=== PATIENT | male | born 1960 | race Two or more races ===

== ENCOUNTER 2023-12-16 11:39 | Emergency (ER) | payer OTHER ==
[~2023-12-16] VITALS: Ht 157.5 cm; Wt 86.2 kg
[2023-12-16] MEDS ORDERED: DEPAKOTE ER500 MG PO (12:16)
[2023-12-16] MEDS ORDERED: QUETIAPINE FUM400 MG PO (12:16)
[2023-12-16] MEDS ORDERED: QUETIAPINE (12:16)
[2023-12-16] MEDS ORDERED: BENZTROPINE MESY1 MG PO (12:17)
[2023-12-16] MEDS ORDERED: ATORVASTATIN CA20 MG PO (12:17)
[2023-12-16] MEDS ORDERED: COZAAR100 MG PO (12:17)
[2023-12-16] MEDS ORDERED: ATIVAN1 M1 PO (12:17)
[2023-12-16] MEDS ORDERED: GLIMEPIRIDE1 M1 PO (12:18)
[2023-12-16] MEDS ORDERED: METFORMIN HCL500 MG (12:18)
[2023-12-16] MEDS ORDERED: LEVOTHYROXINE25 MC1 PO (12:18)
[2023-12-16 13:14] LABS: HEMATOCRIT 42.2 % (39.0-48.0); HEMOGLOBIN 14.6 g/dL (13-16.00); MEAN CELL VOLUME 97.5 fL (80.0-100.00); MEAN CORPUSCULAR HEMOGLOBIN 33.8 pg (27.00-32.0); MEAN CORPUSCULAR HGB CONC 34.7 g/dl (32.0-36.0); PLATELET COUNT 337 K/uL (150-450); RED BLOOD COUNT 4.33 M/uL (4.00-6.00); RED CELL DISTRIBUTION WIDTH 14.5 % (11.5-14.5)
[2023-12-16 13:35] LABS: ALBUMIN 3.8 gm/dL (3.4-5.0); BILIRUBIN TOTAL 0.37 mg/dL (0.3-1.2); CALCIUM 8.9 mg/dL (8.5-10.1); CREATININE SERUM 1.21 mg/dL (0.70-1.30); GFR 60.37; GLOBULINA 3.7 G/DL (2.4-3.5); POTASSIUM 4.28 mEq/L (3.5-5.1); TOTAL PROTEIN 7.5 gm/dL (6.4-8.2)
[2023-12-16 13:55] LABS: URINE APPEARANCE Clear; URINE BILIRRUBIN Negative (NEGATIVE); URINE BLOOD Negative; URINE COLOR Yellow; URINE LEUKOCYTE Negative; URINE NITRATE Negative; URINE PROTEIN Negative (NEGATIVE); URINE UROBILINOGEN 0.2 E.U./dl
[2023-12-16 14:01] LABS: URINE BACTERIA 21.3 uL (0.0-1933)
[2023-12-16 14:07] LABS: URINE EPITHELIAL CELLS 0.7 uL (0.0-38.8); URINE GLUCOSE >=1000 MG/DL (NEGATIVE); URINE RBC 1.4 uL (0.0-20.8); URINE WBC 0.9 uL (0.0-23.2)
[2023-12-16] MEDS ORDERED: INSULIN REGULAR, HUMAN 1,000 UNIT/10 ML UNITS SUBCUTANEO ONE (14:30)
== END 2023-12-16 15:22 | disposition home or self-care (01) ==
LOC: ER 11:39
PROVIDERS: General Practice
DX: R07.89 Other chest pain (principal); I10 Essential (primary) hypertension; E11.9 Type 2 diabetes mellitus without complications; Z79.84 Long term (current) use of oral hypoglycemic drugs; Z88.6 Allergy status to analgesic agent